=== PATIENT | female | born 1955 | race Caucasian/White ===

== ENCOUNTER 2018-08-24 15:35 | Emergency (ER) | payer MEDICAID, OTHER ==
[~2018-08-24] VITALS: Ht 160 cm; Wt 81.6 kg
[2018-08-24 15:40] VITALS: BP 195/116
[2018-08-24 16:47] LABS: BASOPHILS % (AUTO) 0.2 % (0.0-2.0); EOSINOPHILS # (AUTO) 0.2 K/uL (0-0.4); HEMATOCRIT 40.7 % (36-48); HEMOGLOBIN 13.5 g/dL (12.0-16.0); LYMPHOCYTES # (AUTO) 1.5 K/uL (2.5-16.5); LYMPHOCYTES % (AUTO) 23.1 % (20.5-51.1); MEAN CORPUSCULAR HEMOGLOBIN 29 pg (27-31); MEAN CORPUSCULAR HGB CONC 33 g/dL (33-37); MEAN CORPUSCULAR VOLUME 86.8 fL (80-94); MONOCYTES # (AUTO) 0.4 K/uL (0.8-1.0); MONOCYTES % (AUTO) 5.9 % (1.7-9.3); NEUTROPHILS # (AUTO) 4.5 K/uL (1.8-7.7); NEUTROPHILS % (AUTO) 67.8 % (42.2-75.2); PLATELET COUNT (AUTO) 241 K/uL (140-450); RED BLOOD CELL COUNT(AUTO) 4.69 MIL/uL (4.20-5.40); RED CELL DISTRIBUTION WIDTH 14.5 % (11.6-13.7); WHITE BLOOD COUNT (AUTO) 6.6 K/uL (4.8-10.8)
[2018-08-24 17:11] LABS: ANION GAP 16.3 (8-16); CARBON DIOXIDE 23.7 mmol/L (21-32); CREATININE 0.8 mg/dL (0.6-1.3)
[2018-08-24 17:16] LABS: ALBUMIN 4.2 g/dL (3.4-5.0); TOTAL BILIRUBIN 0.3 mg/dL (0.0-1.0)
--- NOTE | 2018-08-24 19:20 | NUR ---
PATIENT W/C ASSISTED TO BED 12. DAUGHTER ACCOMPANIED PT.
--- NOTE | 2018-08-24 19:40 | NUR ---
PT BIB DAUGHTER C/O ABDOMINAL PAIN,CONSTIPATION X 5 DAYS, HAD A BM IN THE MORNING, PAIN 5/10. ABDOMEN SOFT AND DISTENDED, BOWEL SOUNDS ACTIVE, ALL QUADRANTS TENDER TO PALPATION. BED IN LOW POSITION, HOB, ER MD AWARE. WAITING TO BE EVALUATED.
--- NOTE | 2018-08-24 19:46 | NUR ---
PT TAKEN TO XRAY BY BED WITH RT.
--- NOTE | 2018-08-24 20:03 | NUR ---
PT RETURN FROM RAD
--- NOTE | 2018-08-24 20:06 | NUR ---
PT BACK FROM XRAY , PT TOLERATED WELL.
--- NOTE | 2018-08-24 21:00 | NUR ---
PT AMBULATED TO THE BATHROOM, PT WAS HAVING DIARRHEA, MADE AWARE.
[2018-08-24 21:32] VITALS: BP 195/116
--- NOTE | 2018-08-24 21:32 | NUR ---
Patient discharged with v/s stable. Written and verbal after care instructions given and explained. Patient alert, oriented and verbalized understanding of instructions. Ambulatory with steady gait. All questions addressed prior to discharge. ID band removed. Patient advised to follow up with PMD. Rx of LACTULOSE AND MINERAL OIL given. Patient educated on indication of medication including possible reaction and side effects. Opportunity to ask questions provided and answered.Daughter was at bedside during discharge.
== END 2018-08-24 21:32 | disposition home or self-care (01) ==
LOC: MED 15:35
DX: K59.00 Constipation, unspecified (principal)
CPT/HCPCS: 36415; 80053; 82150; 83690; 85025; 99284

== ENCOUNTER 2018-08-26 11:16 | Emergency (ER) | payer OTHER ==
[~2018-08-26] VITALS: Ht 167.6 cm; Wt 90.7 kg
[2018-08-26 11:44] VITALS: BP 154/77
--- NOTE | 2018-08-26 11:51 | NUR ---
PT GAVE URINE SAMPLE AND THEN AMBULATED TO ANN AVALOS
--- NOTE | 2018-08-26 13:35 | NUR ---
PT TO ER BED 4
[2018-08-26 14:43] LABS: BASOPHILS % (AUTO) 0.4 % (0.0-2.0); EOSINOPHILS # (AUTO) 0.4 K/uL (0-0.4); EOSINOPHILS % (AUTO) 5.4 % (0.0-4.0); HEMATOCRIT 36.7 % (36-48); HEMOGLOBIN 12.2 g/dL (12.0-16.0); LYMPHOCYTES # (AUTO) 1.4 K/uL (2.5-16.5); LYMPHOCYTES % (AUTO) 20.9 % (20.5-51.1); MEAN CORPUSCULAR HEMOGLOBIN 29 pg (27-31); MEAN CORPUSCULAR HGB CONC 33 g/dL (33-37); MEAN CORPUSCULAR VOLUME 86.3 fL (80-94); MONOCYTES # (AUTO) 0.4 K/uL (0.8-1.0); MONOCYTES % (AUTO) 5.6 % (1.7-9.3); NEUTROPHILS # (AUTO) 4.6 K/uL (1.8-7.7); NEUTROPHILS % (AUTO) 67.7 % (42.2-75.2); PLATELET COUNT (AUTO) 207 K/uL (140-450); RED BLOOD CELL COUNT(AUTO) 4.25 MIL/uL (4.20-5.40); RED CELL DISTRIBUTION WIDTH 14.2 % (11.6-13.7); WHITE BLOOD COUNT (AUTO) 6.7 K/uL (4.8-10.8)
--- NOTE | 2018-08-26 14:43 | NUR ---
CT of abdomen cancelled per Dr. Sorto verbal order
[2018-08-26 14:59] LABS: ANION GAP 14.8 (8-16); CARBON DIOXIDE 25.3 mmol/L (21-32); CREATININE 0.8 mg/dL (0.6-1.3); POTASSIUM 4.1 mmol/L (3.5-5.1)
[2018-08-26 15:09] LABS: APPEARANCE,URINE CLEAR (CLEAR); BILIRUBIN,URINE NEGATIVE (NEGATIVE); BLOOD, URINE NEGATIVE (NEGATIVE); COLOR,URINE YELLOW (YELLOW); LEUKOCYTE ESTERASE ,URINE NEGATIVE (NEGATIVE); NITRITE, URINE NEGATIVE (NEGATIVE); UGLUCOSE NEGATIVE (NEGATIVE)
[2018-08-26 15:12] LABS: ALBUMIN 3.7 g/dL (3.4-5.0); TOTAL BILIRUBIN 0.3 mg/dL (0.0-1.0)
[2018-08-26 15:13] LABS: PROTHROMBIN TIME 9.6 secs (10.8-13.4)
[2018-08-26] MEDS ORDERED: MORPHINE SULFATE 4 MG/ML SYR IVP ONE (15:35)
[2018-08-26] MEDS ORDERED: HYDROCORTISONE NA SUCC 100 MG/2 ML VIAL IV ONE (18:25)
[2018-08-26] MEDS ORDERED: diphenhydrAMINE 50 MG/ML VIAL IVP ONE (18:25)
--- NOTE | 2018-08-26 18:29 | NUR ---
CALLED PHARMACY AND SPOKE WITH ANABEL, THEY WILL REFILL SOLU CORTEF IT IS OUT RIGHT NOW
--- NOTE | 2018-08-26 19:26 | NUR ---
PT LEAVING TO CT
--- NOTE | 2018-08-26 19:40 | NUR ---
PT BACK FROM CT
[2018-08-26 20:50] VITALS: BP 164/83
--- NOTE | 2018-08-26 20:50 | NUR ---
Patient discharged with v/s stable. Written and verbal after care instructions given and explained. Patient alert, oriented and verbalized understanding of instructions. Ambulatory with steady gait. All questions addressed prior to discharge. ID band removed. Patient advised to follow up with PMD. Rx of MILK OF MAGNESIA given. Patient educated on indication of medication including possible reaction and side effects. Opportunity to ask questions provided and answered.
== END 2018-08-26 20:50 | disposition home or self-care (01) ==
LOC: MED 11:16
DX: K59.00 Constipation, unspecified (principal); I10 Essential (primary) hypertension
CPT/HCPCS: 36415; 74177; 80053; 81003; 81025; 83605; 83690; 84484; 85025; 85610; 93005; 96374; 96375; 99284; J1200; J1720; J2270; Q9967